=== PATIENT | female | born 1990 | race Caucasian/White ===

== ENCOUNTER 2016-11-09 11:46 | Inpatient (IN) ==
[2016-11-09] MEDS ORDERED: Famotidine 20 MG/2 ML VIAL IVP PRN (12:26)
[2016-11-09] MEDS ORDERED: Naloxone 0.4 MG/ML INJ IVP PRN (12:26)
[2016-11-09] MEDS ORDERED: Ondansetron 4 MG/2 ML VIAL IVP PRN (12:26)
[2016-11-09] MEDS ORDERED: Ringers Solution, Lactated 1,000 ML IVC SCH (12:30)
[2016-11-09 12:42] LABS: Basophils # 0.1 K/mcL (0.0-0.2); Basophils % 0.3 %; Eosinophils # 0.1 K/mcL (0.0-0.6); Eosinophils % 0.9 %; Hematocrit 33.7 % (35.3-44.9); Hemoglobin 11.3 g/dL (11.5-15.4); Immature Granulocytes % 1.9 % (0-4); Lymphocytes % 13.1 %; Mean Corpuscular HGB Conc 33.5 g/dL (31.6-35.5); Mean Corpuscular Hemoglobin 29.8 pg (28.0-33.3); Mean Corpuscular Volume 88.9 fL (83.0-100.0); Mean Platelet Volume 11.4 fL (9.4-12.4); Monocytes # 0.9 K/mcL (0.0-1.3); Monocytes % 6.1 %; Neutrophils # 11.7 K/mcL (1.6-8.9); Platelet Count 192 K/mcL (140-400); Red Blood Count 3.79 M/mcL (3.82-4.97); Red Cell Distribution Width 12.3 % (11.5-14.5); Segmented Neutrophils % 77.7 %
--- NOTE | 2016-11-09 13:50 | OB/GYN History & Physical ---
Date of Encounter: 11/09/16 Time of Encounter: 13:47 Assessment and Plan (1) 39 weeks gestation of Current visit: Yes Status: Acute Admitted for spontaneous labor History of Present Illness Chief complaint: Sponaneous Labor HPI: Ms. Max is a 26 year old female at 39w2d presents to labor and delivery with complaints of contractions and pressures. Patient reports +FM, denies LOF or VB. SVE per RN was 4.5/100/0 with bulging membranes. Blood type: A Negative, Rubella: Immune, Hep B: nonreactive, GBS: Negative. Past Med Surg Social Fam HX - Past Medical History Source: patient Medical history: no medical history Psychiatric history: no psych history - Past Surgical History Surgical History: no surgical history - Social History Smoking Status: Never smoker Smokeless Tobacco Status: No Alcohol use: none Drug use: none Activity Level: Independent ambulation Recent Out of Country Travel Within the Last 8 Weeks: No Exposure or Possible Exposure to Illness During Travel: No - Family History Father Living Status: Still Living Hx Family Medical Disorders: Yes (HIGH CHOLESTEROL) Obstetrical History - Pregnancies : 1 Para: 0 Term: 0 : 0 Ab's: 0 Livin Medications and Allergies Ferrous Sulfate 325 mg PO DAILY 11/09/16 [History] Vit Calc,Iron,Folic [ Vitamins] 1 tab PO DAILY 11/09/16 [ History] Allergies No Known Allergies Allergy (Verified 11/09/16 12:35) Review of System OB - Constitutional Constitutional ROS IM: no chills, no fever(s), no headache(s) - Cardiovascular Cardiovascular: no chest pain, no palpitations, no syncope - Respiratory Respiratory: no dyspnea - Gastrointestinal Gastrointestinal: no abdominal pain, no constipation, no cramping, no diarrhea, no heartburn, no nausea, no vomiting - Genitourinary Genitourinary: no abnormal vaginal bleeding, no dysuria, no flank pain, no urinary frequency, no urinary incontinence, no urinary urgency, no vaginal discharge, no vaginal odor Exam - Constitutional Constitutional: well developed, well nourished, no acute distress, average body habitus - HEENT HEENT: Normocephaly, Mucus Membranes Moist - Lungs Respiratory exam: CTAB - Cardiovascular Cardiovascular exam: RRR, +S1, +S2 - Abdomen Abdomen: Present: bowel sounds normal, gravid, non tender - Extremities Extremities exam: full ROM, normal capillary refill, normal inspection Deep Tendon Reflex Grade: 2+ Normal - Cervix Dilation: 5 Effacement: 100 Station: 0 - Uterus Uterus exam: Present: normal size, normal contour - Anus/Rectum Anus/Rectum: Present: normal perianal skin - Comments Comments: FHR 135 bpm moderate variabilit +15x15 accels no decels noted. Contractions 1.5- 3.5 min apart. CAt. 1 tracing Results Result Diagrams: 11/09/16 12:34 Abnormal lab results WBC 15.0 K/mcL (4.3-11.1) H 11/09/16 12:34 RBC 3.79 M/mcL (3.82-4.97) L 11/09/16 12:34 Hgb 11.3 g/dL (11.5-15.4) L 11/09/16 12:34 Hct 33.7 % (35.3-44.9) L 11/09/16 12:34 Neutrophils # 11.7 K/mcL (1.6-8.9) H 11/09/16 12:34 All other labs normal. - VTE Reasons for not Prescribing Prophylaxis: Treatment not Indicated - Low risk for VTE
--- NOTE | 2016-11-09 14:17 | Anesthesia Evaluation PreOp ---
Date of Encounter: 11/09/16 Time of Encounter: 14:15 - Past History Planned Operation: LUDMILA Cardiac History: Denies any Significant Hx Pulmonary History: Denies Any Significant HX BRUSH CUTTER History: Denies Any Significant HX Other Medical History: GERD Anesthesia History: No Prior Anesthetic Complications : Yes Test: Positive Alcohol Use: none Drug use: none Medications and Allergies Ferrous Sulfate 325 mg PO DAILY 11/09/16 [History] Vit Calc,Iron,Folic [ Vitamins] 1 tab PO DAILY 11/09/16 [ History] Allergies No Known Allergies Allergy (Verified 11/09/16 12:35) - Meds/Allergy Pre-op Review Medications Reviewed: Yes Allergies Reviewed: Yes Beta Blockers on Current Med List: No Anesthesia Results - Labs 11/09/16 12:34 Anesthesia Exam 127/82 76 16 fht 123 Height: 5'5" Weight: 88 kg NPO (# of Hours): 1 Pain Scale: 4 Pain Scale Used: Numeric (1 - 10) - HEENT Pupil (Motor): Pupils equal Mallampati: II Teeth: Normal Oral Opening: Greater than 3 - BRUSH CUTTER LOC: Oriented BRUSH CUTTER Motor: Normal RUE, Normal LUE, Normal RLE, Normal LLE, Normal Face BRUSH CUTTER Sensory: Normal: RUE, LUE, RLE, LLE, Face - Cardiac Rhythm: Regular Murmur: None - Pulmonary Breath Sounds: bilateral Clear Respiratory Effort: Symmetrical Anesthesia Assess/Plan ASA Score: 2 Modified [place] Scale for Level of Consciousness: Cooperative, oriented, and tranquil Anesthetic Plan: Regional Autologous Blood: No Monitoring Plan: Standard Monitors Recovery Plan: Other (risks discussed, questions answered, consented)
[2016-11-09] MEDS ORDERED: *HR* FentaNYL (PF) 100 MCG/2 ML VIAL EP ONE (14:18)
[2016-11-09] MEDS ORDERED: *HR* Ropivacaine/PF 0.2% 10 ML AMPUL EP ONE (14:18)
[2016-11-09] MEDS ORDERED: Epidural Premix (fent/bupiv) 110 ML EP SCH (14:30)
--- NOTE | 2016-11-09 15:07 | OB Labor Progress Note ---
Date of Encounter: 11/09/16 Time of Encounter: 15:05 Labor Progress Note - Subjective Subjective: Patient doing well. Discussed POC with patient. Patient denies any questions or concerns. - Cervix Cervix: 5/100/-1 - Heart Tones Heart Tones: 145 bpm moderate variability +15x15 accels no decels noted. Cat. 1 tracing. - [place]: 2-6 min apart - Interventions Interventions: SVE, AROM moderate amount of clear fluid. Patient tolerated well. - Plan Plan: Continue labor management.
[2016-11-09] MEDS ORDERED: *HR* Ropivacaine/PF 0.2% 10 ML AMPUL ONE (16:30)
[2016-11-09] MEDS ORDERED: *HR* FentaNYL (PF) 100 MCG/2 ML VIAL ONE (16:30)
[2016-11-09] MEDS ORDERED: Epidural Premix (fent/bupiv) 110 ML EP ONE ×2 (16:31→23:15)
--- NOTE | 2016-11-09 16:57 | Anesthesia Procedures ---
Date of Encounter: 11/09/16 Time of Encounter: 16:55 Procedures: Anesthesia - Epidural/Spinal Patient ID/Chart reviewed: Yes Patient examined: Yes OB Eval: Gestational age: 39 OB Eval: : 1 OB Eval: Hx Para: 0 OB Eval: Dilated at (cm): 5 OB Eval: Contractions: Non-stressed pattern Consent Obtained: Yes Supplemental Oxygen: None/Room Air Site Prep: Aseptic Technique, Sterile prep and drape, 0.5% Chlorhexidine/Alcohol Patient position: upright Local Anesthetic: Lidocaine 1% Amount of Local Anesthetic used: 3 Touhy Needle Gauge: 18 Touhy Needle Depth (cm): 6 Catheter Depth at Skin (cm): 15 Test Dose (1.5% Lido + Epi): Volume given (mls): 3 Test Dose Result: Negative Loading Dose Administered: Thru Touhy Needle Infusion Med: 0.125% Bupivacaine w/ 2 mcg/ml Fentanyl Infusion Rate (mls/hr): 15 (pcea 5 cc q 30") Catheter Secured in Place: Tegaderm, Tape Loss of Resistance (DONAL): Yes Blood: No CSF: No Paresthesia: No Procedure: aseptic throughout, tolerated well, VSS Vitals + FHT's: 120/89 68 fht 133
--- NOTE | 2016-11-09 17:56 | OB Labor Progress Note ---
Date of Encounter: 11/09/16 Time of Encounter: 17:54 Labor Progress Note - Subjective Subjective: Called to patient's room for prolonged deceleration. FHR down to the 60's. Patient was on left side with 02 mask on. SVE, FSE placed without difficulty. Patient tolerated well. FHR back up to 125 bpm moderate variability. - Cervix Cervix: 6/100/-1 - Heart Tones Heart Tones: 125 bpm moderate variability - [place]: irregular - Interventions Interventions: SVE, FSE - Plan Plan: Continue labor management with EFM and toco
--- NOTE | 2016-11-09 20:05 | OB Labor Progress Note ---
Date of Encounter: 11/09/16 Time of Encounter: 20:03 Labor Progress Note - Subjective Subjective: Patient resting comfortably with epidural in place. Patient denies any pain. Discussed POC with patient. Patient denies any questions or concerns. - Cervix Cervix: 7/100/0 - Heart Tones Heart Tones: 135 bpm moderate variability +15x15 accels no decels noted. Cat 1 tracing - [place]: 5-5.5 min apart - Interventions Interventions: SVE - Plan Plan: Will augment with pitocin for adequate labor pattern.
[2016-11-09] MEDS ORDERED: Oxytocin 20 units/ LR 1000 mL 20 UNIT/1,000 ML BAG IVC SCH (20:15)
[2016-11-10] MEDS ORDERED: *HR* Ropivacaine/PF 0.2% 10 ML AMPUL ONE (00:55)
[2016-11-10] MEDS ORDERED: Epidural Premix (fent/bupiv) 110 ML EP ONE (04:37)
--- NOTE | 2016-11-10 07:13 | OB/GYN Procedure Note ---
Delivery - Delivery Date: 11/10/16 Provider: Haylee Hemphill Intrapartum events: none Delivery induction: AROM Delivery monitor: external FHT, external uterine, internal FHT, internal uterine Anesthesia: epidural Estimated Blood Loss: 200 - (s) Infant A Infant Delivery Date: 11/10/16 Infant Delivery Time: 06:34 Presentation: vertex Position: JUSTINO Route of delivery: Gender: Male Viability: Viable Pounds: 7 Ounces: 15 Weight Gram: 3600 kg at 1 minute: 7 at 5 mins: 15 Shoulder Dystocia: not encountered Specimens collected: cord blood Placenta: spontaneous Cord: 3 umbilical vessels - Repair Episiotomy: none Laceration Description: Perineal - 1st Degree, Superficial (right labial) - Complications Delivery complications: none - Disposition Mom disposition: stable in LDR Center disposition: stable in LDR - Comments Comments: Called to LDR patient was complete and in stirrups pushing when CNM entered room. Under maternal effort a viable Male delivered spontaneously. No nuchal, no shoulder or meconium was noted. was placed on maternal abdomen. A 1st degree perineal laceration was noted and repaired with 3-0 vicryl. A right labial superficial laceration was noted but hemostatic. Cord was clamped and cut after pulsation ceased. 3 vessel cord noted. Infant placed skin to skin. Cord blood was collected. Placenta delivered spontaneously and intact. Pericare provided. Ice pack on perineum. Both Mother and stable in LDR for 2 hour recovery.
[2016-11-10] MEDS ORDERED: Rho Immune Globulin 1,500 UNIT SYRINGE IM PRN (09:12)
[2016-11-10] MEDS ORDERED: Lanolin 7 G OINT...G. TP PRN (09:12)
[2016-11-10] MEDS ORDERED: *HR* HYDROcodone/Acet 5/325 mg TABLET PO PRN (09:12)
[2016-11-10] MEDS ORDERED: Prenatal Vit/FA 1 EACH TABLET PO SCH (09:12)
[2016-11-10] MEDS ORDERED: Oxytocin 20 units/ LR 1000 mL 20 UNIT/1,000 ML BAG IVC SCH (09:12)
[2016-11-10] MEDS ORDERED: Acetaminophen 325 MG TABLET PO PRN (09:12)
[2016-11-10] MEDS ORDERED: Ibuprofen 600 MG TABLET PO PRN (09:12)
[2016-11-10] MEDS ORDERED: Benzocaine/Menthol 56 GM AEROSOL SPRAY TP PRN (09:12)
[2016-11-11 08:10] VITALS: BP 115/71
--- NOTE | 2016-11-11 10:44 | Discharge Summary ---
Date of Encounter: 11/11/16 Time of Encounter: 10:42 - Discharge Diagnosis (1) Vaginal delivery Priority: Primary Status: Acute Comments: Pt states feel well. Pain well managed, voiding without difficultly, bleeding minimal, breast feeding. - Discharge Medications Prescriptions: Ibuprofen [Motrin] 600 mg PO Q6HR PRN #60 tab PRN Reason: Cramping Docusate [Colace] 100 mg PO BID #60 Home Medications: Acetaminophen [Tylenol] 650 mg PO Q6HR PRN tab 11/11/16 [Rx] Benzocaine/Menthol [place] [Dermoplast [place]] 1 appl TP QID PRN aerosol 11/11/16 [Rx] Breast Pump [BREAST PUMP] 1 each .ROUTE AD #1 each 11/11/16 [Rx] Docusate [Colace] 100 mg PO BID #60 11/11/16 [Rx] Ibuprofen [Motrin] 600 mg PO Q6HR PRN #60 tab 11/11/16 [Rx] Lanolin [Lansinoh] 1 appl TP TID PRN 11/11/16 [Rx] Vit/FA 1 each PO DAILY tab 11/11/16 [Rx] Allergies/Adverse Reactions: Allergies No Known Allergies Allergy (Verified 11/09/16 12:35) Data Procedures and tests throughout hospitalization: Laboratory Tests 11/09/16 11/10/16 12:34 07:32 WBC 15.0 H RBC 3.79 L Hgb 11.3 L Hct 33.7 L MCV 88.9 MCH 29.8 MCHC 33.5 RDW 12.3 Plt Count 192 MPV 11.4 Immature Gran % 1.9 Seg Neutrophils % 77.7 Lymphocytes % 13.1 Monocytes % 6.1 Eosinophils % 0.9 Basophils % 0.3 Neutrophils # 11.7 H Lymphocytes # 2.0 Monocytes # 0.9 Eosinophils # 0.1 Basophils # 0.1 Baby's Blood Type A RH NEGATIVE Mother's Blood Type A RH NEGATIVE Rhogam Indicated NO Date of admission: 11/09/16 11:46 Primary care physician: PCP NO Consults: 11/10/16 09:12 Consult to [employer] [CONS] Routine Comment: Vaginal delivery, consult needed Discharging clinician: Rose Mary Smith Anticipated date of discharge: 11/11/16 - Patient Status Disposition: Home, Self-Care Condition: Good Functional capacity at discharge: independent ambulation Overall status at discharge: patient is back to baseline - Discharge Instructions Follow Up With: NO,PCP [Primary Care Provider] - Haylee Hemphill CNM [Non-Partnered Physician] - - Diet and Activity Activity: resume usual activities as tolerated Diet: regular diet Hospital Course Reason for admission: IUP at term Delivery: Episiotomy: none Laceration: 1st degree complications: none Discharge diagnosis: IUP at term delivered [place] baby: male Hospital course: Delivery - Delivery Date: 11/10/16 Provider: Haylee Hemphill Intrapartum events: none Delivery induction: AROM Delivery monitor: external FHT, external uterine, internal FHT, internal uterine Anesthesia: epidural Estimated Blood Loss: 200 - Infant (s) A Delivery Date: 11/10/16 Delivery Time: 06:34 Presentation: vertex Position: JUSTINO Route of delivery: Gender: Male Viability: Viable Pounds: 7 Ounces: 15 Weight Gram: 3600 kg at 1 minute: 7 at 5 mins: 15 Shoulder Dystocia: not encountered Specimens collected: cord blood Placenta: spontaneous Cord: 3 umbilical vessels - Repair Episiotomy: none Laceration Description: Perineal - 1st Degree, Superficial (right labial) - Complications Delivery complications: none - Disposition Mom disposition: stable in and appropriate for discharge. Time Attestation: Total time spent providing and/or coordinating discharge services: Time Spent: Less than 30 minutes Exam - Constitutional Vitals: Temp Pulse Resp BP Pulse Ox 97.6 F 91 16 115/71 98 11/11/16 07:30 11/11/16 07:30 11/11/16 07:30 11/11/16 07:30 11/11/16 04:00 General appearance IM: A&O X 3, no acute distress - Respiratory Respiratory exam: Present: CTAB - Cardiovascular Cardiovascular exam IM: Present: RRR, +S1, +S2 - GI/Abdominal GI/Abdominal exam IM: normal bowel sounds, soft - Uterus Position: At Umbilicus - Extremities Exam Extremities exam IM: Present: normal capillary refill, normal inspection - Psychiatric Additional comments: reports good mood
== END 2016-11-11 17:35 | disposition home or self-care (01) | DRG 560 ==
LOC: 1NENULAB → OBSVTOIN 11:46 → 1NENUOBS 11-10 09:10
PROVIDERS: ADMIT Obstetrics & Gynecology; ATTEND Obstetrics & Gynecology